=== PATIENT | female | born 1940 | race Caucasian/White ===

== ENCOUNTER 2017-08-08 10:54 | Emergency (ER) | payer MEDICARE, OTHER ==
[2017-08-08] MEDS ORDERED: NS 0.9% 1000 ML* 1,000 ML IV ONE (12:15)
[2017-08-08] MEDS ORDERED: Ondansetron INJ* 2 MG/ML VIAL IV ONE (12:17)
[2017-08-08 12:42] LABS: ABS Basophils 0.1 10^3/ul (0-0.2); ABS Eosinophils 0 10^3/ul (0-0.6); ABS Lymphocytes 1.1 10^3/ul (1.0-4.8); ABS Monocytes 0.5 10^3/ul (0-0.8); ABS Neutrophils 3.6 10^3/ul (1.5-7.7); ABS Nucleated RBC 0 10^3/ul; Eosinophil % 0.7 % (0-6); Hematocrit 36 % (35-47); Hemoglobin 12.8 g/dl (12.0-16.0); Lymphocyte % 21.5 % (25-47); Mean Corpuscular HGB Conc 36 g/dl (31-36); Mean Corpuscular Hemoglobin 32 pg (27-31); Mean Corpuscular Volume 91 fL (80-97); Mean Platelet Volume 7.7 um3 (7.4-10.4); Nucleated Red Blood Cells % 0; Platelet Count 286 10^3/ul (150-450); Red Blood Count 3.96 10^6/ul (4.0-5.4); Red Cell Distribution Width 14 % (10.5-15); White Blood Count 5.3 10^3/ul (3.5-10.8)
[2017-08-08 12:54] LABS: INR 0.93 (0.77-1.02)
[2017-08-08 13:03] LABS: EGFR Non-African American 109.8 (>60)
[2017-08-08 14:10] VITALS: BP 121/67
--- NOTE | 2017-08-09 06:29 | ED ---
Complex/Multi-Sys Presentation - HPI Summary HPI Summary: patient is a 77-year-old female presenting with multiple complaints. She states the past year or 2 she has been feeling weak, tired, intermittent dizziness, early satiety, nausea without vomiting with some upper epigastric pain. She also states she has lost 20 pounds in the past year and a half. She states she has lost quality of life and stays in bed frequently. She has been seen by her PCP here in [place] as well as ENT for dizziness and GI with an endoscopy and colonoscopy. She also states she believes she has had MRIs and CAT scans with no findings. She was placed on Prozac last week which worsened her nausea/vomiting symptoms. She stopped taking this 2 days ago. She denies any UTI symptoms. She states she awakens with nausea. Denies any fevers, sweats, chills. She has never been placed on a PPI for her abdominal pain and nausea. Her endoscopy showed "changes" but nothing definitive to place her on medication she states however, GI stated they would like a follow-up endoscopy in 6 months time. This was approximately 6 months ago at this time. She says she travels back and forth between [place] and [place] and has physicians in each area. The reason she comes to the ED today is to get another opinion. - History Of Current Complaint Chief Complaint: EDGeneral Time Seen by Provider: 08/08/17 11:42 Hx Obtained From: Patient Onset/Duration: Gradual Onset Timing: Constant Severity Currently: Mild Severity Initially: Mild Associated Signs And Symptoms: Positive: Weakness, Nausea, Abdominal Pain, Decreased Oral Intake, Recent Medication Changes. Negative: Immunocompromised - Allergies/Home Medications Allergies/Adverse Reactions: Allergies Allergy/AdvReac Type Severity Reaction Status Date / Time codeine AdvReac Intermediate Altered Verified 08/08/17 12:22 Mental Status Home Medications: Home Medications Calcium Carbonate/Vitamin D3 [Calcium 600 + Vit D Tablet] 1 tab PO DAILY [History Confirmed 08/08/17] Cyclosporine 0.05% OPHTH (NF) [Restasis 0.05% OPHTH] 1 drop BOTH EYES BID [History Confirmed 08/08/17] FLUoxetine CAP* [PROzac CAP*] 20 mg PO DAILY 08/08/17 [History Confirmed ] Ibandronate TAB(NF) [Boniva(NF)] 150 mg PO MONTHLY 08/08/17 [History Confirmed 08/08/17] Omeprazole CAP* [Prilosec CAP* 20 MG] 40 mg PO DAILY 08/08/17 [History Confirmed 08/08/17] clonazePAM TAB(*) [KlonoPIN TAB(*)] 0.5 - 1 mg PO BID 08/08/17 [History Confirmed 08/08/17] PMH/Surg Hx/FS Hx/Imm Hx Previously Healthy: Yes - Immunization History Hx Pertussis Vaccination: No Immunizations Up to Date: Unable to Obtain/Confirm Infectious Disease History: Yes Infectious Disease History: Denies: Traveled Outside the [place] in Last 30 Days - Family History Known Family History: Negative: Cardiac Disease, Hypertension, Diabetes - Social History Occupation: Unemployed, Retired - all Lives: With Family Alcohol Use: Occasionally Hx Substance Use: Yes Substance Use Type: Reports: Prescribed Hx Tobacco Use: Yes Smoking Status (MU): Former Smoker Review of Systems Constitutional: Negative Positive: Fatigue. Negative: Fever, Chills Negative: Palpitations, Chest Pain Negative: Shortness Of Breath, Cough Positive: Abdominal Pain, Nausea Genitourinary: Negative Positive: no symptoms reported, see HPI Positive: Weakness Psychological: Normal All Other Systems Reviewed And Are Negative: Yes Physical Exam Triage Information Reviewed: Yes Vital Signs On Initial Exam: Initial Vitals Temp Pulse Resp BP Pulse Ox 98.4 F 85 20 131/75 96 08/08/17 11:09 08/08/17 11:09 08/08/17 11:09 08/08/17 11:09 08/08/17 11:09 Vital Signs Reviewed: Yes Appearance: Positive: Well-Appearing, No Pain Distress Skin: Positive: Warm, Skin Color Reflects Adequate Perfusion Head/Face: Positive: Normal Head/Face Inspection Eyes: Positive: EOMI, MELIZA Neck: Positive: Supple, No Lymphadenopathy Respiratory/Lung Sounds: Positive: Clear to Auscultation, Breath Sounds Present Cardiovascular: Positive: RRR, Pulses are Symmetrical in both Upper and Lower Extremities Musculoskeletal: Positive: Normal, Strength/ROM Intact Neurological: Positive: Speech Normal Psychiatric: Positive: Normal Diagnostics - Vital Signs Vital Signs Temp Pulse Resp BP Pulse Ox 08/08/17 14:13 98.8 F 78 16 121/67 99 08/08/17 14:03 121/67 08/08/17 14:00 78 98 08/08/17 13:00 70 99 08/08/17 12:13 75 136/74 98 08/08/17 12:00 78 98 08/08/17 11:43 80 136/75 97 08/08/17 11:42 77 97 08/08/17 11:09 98.4 F 85 20 131/75 96 - Laboratory Lab Results: Lab Results 08/08/17 08/08/17 08/08/17 Range/Units 12:22 12:22 12:22 WBC 5.3 (3.5-10.8) 10^3/ul RBC 3.96 L (4.0-5.4) 10^6/ul Hgb 12.8 (12.0-16.0) g/dl Hct 36 (35-47) % MCV 91 (80-97) fL MCH 32 H (27-31) pg MCHC 36 (31-36) g/dl RDW 14 (10.5-15) % Plt Count 286 (150-450) 10^3/ul MPV 7.7 (7.4-10.4) um3 Neut % (Auto) 67.6 (38-83) % Lymph % (Auto) 21.5 L (25-47) % [place] % (Auto) 9.1 H (0-7) % Eos % (Auto) 0.7 (0-6) % Baso % (Auto) 1.1 (0-2) % Absolute Neuts (auto) 3.6 (1.5-7.7) 10^3/ul Absolute Lymphs (auto) 1.1 (1.0-4.8) 10^3/ul Absolute Monos (auto) 0.5 (0-0.8) 10^3/ul Absolute Eos (auto) 0 (0-0.6) 10^3/ul Absolute Basos (auto) 0.1 (0-0.2) 10^3/ul Absolute Nucleated RBC 0 10^3/ul Nucleated RBC % 0 INR (Anticoag Therapy) 0.93 (0.77-1.02) APTT 30.9 (26.0-36.3) seconds Sodium 140 (139-145) mmol/L Potassium 3.8 (3.5-5.0) mmol/L Chloride 106 (101-111) mmol/L Carbon Dioxide 27 (22-32) mmol/L Anion Gap 7 (2-11) mmol/L BUN 10 (6-24) mg/dL Creatinine 0.54 (0.51-0.95) mg/dL Est GFR ( Amer) 141.2 (>60) Est GFR (Non-Af Amer) 109.8 (>60) BUN/Creatinine Ratio 18.5 (8-20) Glucose 99 (70-100) mg/dL Lactic Acid (0.5-2.0) mmol/L Calcium 9.3 (8.6-10.3) mg/dL Magnesium 2.0 (1.9-2.7) mg/dL Total Bilirubin 0.40 (0.2-1.0) mg/dL AST 14 (13-39) U/L ALT 9 (7-52) U/L Alkaline Phosphatase 51 (34-104) U/L Troponin I 0.00 (<0.04) ng/mL C-Reactive Protein < 1.00 (< 5.00) mg/L B-Natriuretic Peptide ( - 100) pg/mL Total Protein 6.5 (6.4-8.9) g/dL Albumin 3.9 (3.2-5.2) g/dL Globulin 2.6 (2-4) g/dL Albumin/Globulin Ratio 1.5 (1-3) TSH 0.99 (0.34-5.60) mcIU/mL 08/08/17 08/08/17 Range/Units 12:22 12:22 WBC (3.5-10.8) 10^3/ul RBC (4.0-5.4) 10^6/ul Hgb (12.0-16.0) g/dl Hct (35-47) % MCV (80-97) fL MCH (27-31) pg MCHC (31-36) g/dl RDW (10.5-15) % Plt Count (150-450) 10^3/ul MPV (7.4-10.4) um3 Neut % (Auto) (38-83) % Lymph % (Auto) (25-47) % [place] % (Auto) (0-7) % Eos % (Auto) (0-6) % Baso % (Auto) (0-2) % Absolute Neuts (auto) (1.5-7.7) 10^3/ul Absolute Lymphs (auto) (1.0-4.8) 10^3/ul Absolute Monos (auto) (0-0.8) 10^3/ul Absolute Eos (auto) (0-0.6) 10^3/ul Absolute Basos (auto) (0-0.2) 10^3/ul Absolute Nucleated RBC 10^3/ul Nucleated RBC % INR (Anticoag Therapy) (0.77-1.02) APTT (26.0-36.3) seconds Sodium (139-145) mmol/L Potassium (3.5-5.0) mmol/L Chloride (101-111) mmol/L Carbon Dioxide (22-32) mmol/L Anion Gap (2-11) mmol/L BUN (6-24) mg/dL Creatinine (0.51-0.95) mg/dL Est GFR ( Amer) (>60) Est GFR (Non-Af Amer) (>60) BUN/Creatinine Ratio (8-20) Glucose (70-100) mg/dL Lactic Acid 0.8 (0.5-2.0) mmol/L Calcium (8.6-10.3) mg/dL Magnesium (1.9-2.7) mg/dL Total Bilirubin (0.2-1.0) mg/dL AST (13-39) U/L ALT (7-52) U/L Alkaline Phosphatase (34-104) U/L Troponin I (<0.04) ng/mL C-Reactive Protein (< 5.00) mg/L B-Natriuretic Peptide 30 ( - 100) pg/mL Total Protein (6.4-8.9) g/dL Albumin (3.2-5.2) g/dL Globulin (2-4) g/dL Albumin/Globulin Ratio (1-3) TSH (0.34-5.60) mcIU/mL Result Diagrams: 08/08/17 12:22 08/08/17 12:22 Lab Statement: Any lab studies that have been ordered have been reviewed, and results considered in the medical decision making process. Complex Multi-Symp Course/Dx Course Of Treatment: Patient is evaluated for a variety of complaints. She endorses a mild amount of nausea and some epigastric tenderness which has all been present for approximately a year and a half. She states she has decreased appetite and early satiety. + [place] weight loss over the past year and a half. I discussed with patient and assured her she is doing all the right things by following up with ENT, GI and PCP to assess her multiple complaints/condition. I have discussed obtaining an endoscopy, colonoscopy and CAT scan would be done on an outpatient basis. However, due to her nausea and epigastric tenderness will start on PPI and have her follow up here with our ENT. Also, I have given her ODT Zofran for her nausea. I have discussed at length with patient that I will be unlikely to discern the causes for her symptoms. 20 pound weight loss is concerning to me and I have advised she seek out one of our GI specialists. She denies any tick bites or rash, however she states she had a history of Lyme and believes this may be contributory. I will have her follow-up with Dr. Franco as well. Labs are obtained and are unremarkable. is at bedside and both patient and are okay with plan. - Diagnoses Provider Diagnoses: Weakness, Weight loss Discharge - Sign-Out/Discharge Documenting (check all that apply): Discharge/Admit/Transfer - Discharge Plan Condition: Stable Disposition: HOME Prescriptions: Omeprazole 40 mg PO DAILY #30 capsule. Ondansetron ODT TAB* [Zofran 4 MG Odt TAB*] 4 mg PO Q6H PRN #30 tab.odt MDD 4 PRN Reason: Nausea Referrals: Frida AGUILAR,Tristen Hopkins [Medical Doctor] - Javy Ridley MD [Medical Doctor] - Clint Silva MD [Primary Care Provider] - Kannan Andrea MD [Medical Doctor] - Additional Instructions: Please follow-up with Dr. Andrea for a follow-up endoscopy Please follow-up with Dr. Franco to discuss the results of the Lyme test Also talked to her doctor about your significant weight loss Omeprazole once daily 30 days, if this improves her symptoms, this is an over- the-counter medication, however please talk to Dr. Andrea about this Zofran may be used to 4 times daily for nausea - Billing Disposition and Condition Condition: STABLE Disposition: HOME
== END 2017-08-08 14:13 | disposition home or self-care (01) ==
LOC: ED 10:54
DX: R53.1 Weakness (principal); R63.4 Abnormal weight loss; R10.13 Epigastric pain; R11.0 Nausea; R42 Dizziness and giddiness; Z88.5 Allergy status to narcotic agent; Z87.891 Personal history of nicotine dependence
CPT/HCPCS: 36415; 80053; 83605; 83735; 83880; 84443; 84484; 85025; 85610; 85730; 86140; 86618; 96374; 99282; J2405